=== PATIENT | female | born 1955 | race Caucasian/White ===

== ENCOUNTER → 2017-01-05 | Outpatient (CLI) | payer BC ==
--- NOTE | 2017-01-05 17:31 | CTL ---
EXAMINATION TYPE: CT Low Dose Lung DATE OF EXAM ORDERED: 01/05/2017 7:33 AM HISTORY: . Lung cancer screening CT DLP: 80.[address] CTDI: 2.2 mGy Automated exposure control for dose reduction was used. SCREENING VISIT: Subsequent study COMPARISON: 05/16/2016 TECHNIQUE: Low dose computed tomography scan was performed through the chest at 1 mm thick sections a nd reconstructed images in the coronal plane at [address] DIAGNOSTIC QUALITY: Satisfactory FINDINGS: LUNG NODULES: None. Left: a nodule with a size of 4 x 6 mm. Nodule Size in Millimeters 6 mm mm was visualized with Nodul e Type: Solid that is Nodule state: Solid in nature on image # CT Image slide number 95. Left: a nodule with a size of 0.4 x 0.4 cm.. Nodule Size in Millimeters for mm was visualized with N odule Type: Solid that is Nodule state: Solid in nature on image # CT Image slide number 130. Left: a nodule with a size of 0.5 x 0.4 cm. Nodule Size in Millimeters 5 mm was visualized with Nodu le Type: Solid that is Nodule state: Solid in nature on image # CT Image slide number 130. LUNGS: COPD: Severity: None Fibrosis: Severity: None Lymph nodes: None Other findings: Ascending thoracic aorta at the level the main pulmonary artery is 3.4 cm. The main p ulmonary bifurcation is 2.3 cm. RIGHT PLEURAL SPACE: Effusion: None Calcification: None Thickening: None Pneumothorax: None LEFT PLEURAL SPACE: Effusion: None Calcification: None Thickening: None Pneumothorax: None HEART: Heart Size: Normal Coronary calcification: None observed Pericardial effusion: None OTHER FINDINGS: Upper abdomen: Unremarkable Bony thorax: Normal Supraclavicular region: No suspicious adenopathy. Other: None IMPRESSION: 1. Stable small nodules within the left upper and midlung FOLLOW UP CT CHEST RECOMMENDATION: Follow-up chest CT [address] LUNG RAD: Lung-Rad 3 Probably Benign
== END ==
LOC: RADCTMAIN 07:09
PROVIDERS: ATTEND Family Medicine
DX: R91.8 Other nonspecific abnormal finding of lung field (principal); Z87.891 Personal history of nicotine dependence

== ENCOUNTER → 2017-07-20 | Outpatient (CLI) | payer BC ==
--- NOTE | 2017-07-20 08:29 | CTL ---
EXAMINATION TYPE: CT Low Dose Lung DATE OF EXAM ORDERED: 07/20/2017 HISTORY: Personal history of tobacco abuse. Lung cancer screening CT DLP: 68.[address] CTDI: 2.20 mGy Automated exposure control for dose reduction was used. SCREENING VISIT: 3 COMPARISON: 05/16/2016 and 01/05/2017 TECHNIQUE: Low dose computed tomography scan was performed through the chest at 1 mm thick sections a nd reconstructed images in the coronal plane at [address] DIAGNOSTIC QUALITY: Satisfactory FINDINGS: LUNG NODULES: Left: a nodule with a size of 4 x 6 mm is again seen and unchanged from the prior. Nodule Type: Solid that is Nodule state: Unchanged in nature on image # CT Image slide number 84. Left: a nodule with a size of 4 x 4 millimeter is again seen and unchanged from the prior. Nodule Typ e: Solid that is Nodule state: Unchanged in nature on image # CT Image slide number 120. The previous ly seen adjacent nodule represents a pulmonary vessel. Right: A subpleural solid nodule measuring 4 x 3 mm is seen. This is present on image 69. This is new from the prior exam. LUNGS: COPD: Severity: None Fibrosis: Severity: None Lymph nodes: Non- Other findings: No evidence of pulmonary arterial hypertension or thoracic aortic aneurysm. Minimal s ubsegmental bibasilar atelectasis is present. RIGHT PLEURAL SPACE: Effusion: None Calcification: None Thickening: None Pneumothorax: None LEFT PLEURAL SPACE: Effusion: None Calcification: None Thickening: None Pneumothorax: None HEART: Heart Size: Normal Coronary calcification: Pericardial effusion: None OTHER FINDINGS: Upper abdomen: Unenhanced visualized images of the upper abdomen are unremarkable. Bony thorax: Moderate degenerative changes of the thoracic spine. Supraclavicular region: No suspicious adenopathy IMPRESSION: Stable solid subcentimeter left pulmonary nodules and single solid subcentimeter new righ t pulmonary nodule. FOLLOW UP CT CHEST RECOMMENDATION: Follow-up chest CT is again recommended in 6 months as there is a new right pulmonary nodule. CT LUNG RAD: Lung RADS 3 probably benign
== END | disposition home or self-care (01) ==
LOC: RADCTMAIN 06:36
PROVIDERS: ATTEND Family Medicine
DX: Z12.2 Encounter for screening for malignant neoplasm of respiratory organs (principal); R91.8 Other nonspecific abnormal finding of lung field; Z87.891 Personal history of nicotine dependence

== ENCOUNTER → 2017-08-07 | Outpatient (CLI) | payer BC ==
--- NOTE | 2017-08-07 19:42 | PN ---
PROGRESS NOTE Leanne is doing well. She is coming in for a 2 year follow up regarding her obstructive sleep apnea. She was diagnosed having ТАТЬЯНА and she is currently on CPAP pressure of 8 cm. Baseline AHI was 72. She has gained about 8 pounds since her original diagnosis. She is doing well. Her treatment was successful. She is using an AirFit N10 nose mask; however she is still leaking around 33 beats per minute around the mask. Despite the leak, she is still benefitting from the treatment. AHI is down to 3.5, while on treatment. Her compliancy has shown average CPAP use around 7.9 hours per night. She is alert and awake during the day. She has not falling asleep during the daily activities. No other new onset comorbidities or complications while on treatment. BP 127/68, pulse is 70, respirations 16, temp 98.5 saturation 96% on room air. Weight is 168. BMI 30.7. Height is 5 feet 2 inches. GENERAL APPEARANCE: Calm, comfortable. HEENT: Mallampati class IV. No goiter or neck masses. LUNGS: Clear to auscultation. HEART: Sounds regular rhythm. Normal S1, S2. No S3, S4. No murmurs. ABDOMEN: Soft, nontender. EXTREMITIES: No edema. No cyanosis or clubbing. IMPRESSION: 1. Symptomatic obstructive sleep apnea, AHI of 72 at baseline, currently on CPAP pressure of 8. 2. Increased leaks around the nose mask, AirFit N10. 3. Successful treatment with an AHI while on treatment is down to 3.5. 4. Adequate compliance. PLAN: 1. Switch this patient to an AirFit P10 nasal pillows. 2. I sized the patient a small size nasal pillows today and prescription will be sent to [facility]. 3. Encourage weight loss. 4. Maintain same CPAP pressure. 5. We will continue to follow and we will see her back in couple of years or earlier if needed. For now, treatment is successful. MMODL / IJN: [id number] /
== END ==
LOC: SLEEP 15:28
PROVIDERS: ATTEND Internal Medicine Critical Care Medicine
DX: G47.33 Obstructive sleep apnea (adult) (pediatric) (principal)

== ENCOUNTER → 2018-02-08 | Outpatient (CLI) | payer BC ==
--- NOTE | 2018-02-08 08:50 | CTL ---
EXAMINATION TYPE: CT Low Dose Lung DATE OF EXAM ORDERED: 02/08/2018 HISTORY: 62-year-old female Personal history of tobacco use. Lung cancer screening CT DLP: 114.[address] CTDI: 3.6 mGy Automated exposure control for dose reduction was used. SCREENING VISIT: Six-month follow-up COMPARISON: 07/20/2017 and 01/05/2017 TECHNIQUE: Low dose computed tomography scan was performed through the chest at 1 mm thick sections a nd reconstructed images in the coronal and sagittal plane at [address] DIAGNOSTIC QUALITY: Satisfactory FINDINGS: The heart is normal size without pericardial effusion. Aorta normal caliber with a conventional branching anatomy. Scattered mild assess for recurrence calc ifications. No thoracic lymphadenopathy by CT size criteria. -A tiny 3 mm pulmonary nodule peripheral right upper lobe axial image 52 is unchanged for one year in retrospect. -A 3 mm subpleural pulmonary nodule peripheral right upper lobe axial image 68 is unchanged for one y ear in retrospect. -A 3 mm right middle lobe pulmonary nodule axial image 147 is unchanged for 6 months. -Some linear scarring peripheral right base is unchanged. -A 5 mm subpleural pulmonary nodule peripheral left upper lobe axial image 92 is unchanged for one ye ar. -A 4 mm pulmonary nodule left mid lung along the major fissure is unchanged for one year axial image 122. -No consolidation or pleural effusion. [place]andy areas of atelectasis are present. Visualized upper abdomen shows no gross abnormality. Bones: Endplate spondylosis mid to lower thoracic spine. No osseous destructive process. IMPRESSION: 1. LungRADS 2 - benign; bilateral pulmonary nodules measuring up to 5 mm are unchanged for at least 6 months. RECOMMENDATION: 1. Continue with annual low-dose CT lung cancer screening in 1 year. 2. Smoking cessation. FOLLOW UP CT CHEST RECOMMENDATION: [address] LUNG RAD: Lung-Rad 2 Benign Appearance or Behavior
== END | disposition home or self-care (01) ==
LOC: RADCTMAIN 06:37
PROVIDERS: ATTEND Family Medicine
DX: Z12.2 Encounter for screening for malignant neoplasm of respiratory organs (principal); Z87.891 Personal history of nicotine dependence; R91.8 Other nonspecific abnormal finding of lung field

== ENCOUNTER → 2018-06-17 | Outpatient (CLI) | payer BC ==
--- NOTE | 2018-06-17 22:26 | CT ---
EXAMINATION TYPE: CT abdomen pelvis wo con DATE OF EXAM: 06/17/2018 HISTORY: Abdominal bloating x6 months per patient. Pain (R.9) per order. CT DLP: 738 mGycm. Automated Exposure Control for Dose Reduction was Utilized. TECHNIQUE: CT scan of the abdomen and pelvis is performed without oral or IV contrast. COMPARISON: Complete abdominal ultrasound April 28, 2016 FINDINGS: Within the limitations of a non-contrast study, the following observations are made. LUNG BASES: There is bibasilar lateral linear scarring. LIVER/GB: Liver is heterogeneously hypodense relative to spleen consistent with diffuse fatty infiltr ation. Somewhat contracted gallbladder is noted. PANCREAS: No significant abnormality is seen. SPLEEN: No significant abnormality is seen. ADRENALS: No significant abnormality is seen. KIDNEYS: Corresponding with ultrasound there is a 1.6 cm simple-appearing cyst laterally upper and mi d pole level left kidney. There is exophytic 1.2 cm low dense lesion favoring simple cyst axial image 36. There are subcentimeter exophytic lesion anteriorly upper pole of the right kidney too small to furth er characterize axial image 18. There is 2 mm nonobstructing calculus upper pole of the right kidney coronal image 60. BOWEL: No suspicious small or large bowel dilatation is present. Normal-appearing appendix is seen fr om cecum. There are a few scattered colonic diverticula. There is no CT evidence for acute diverticul itis. GENITAL ORGANS: Anteverted uterus is seen. Uterine fundus there is a 1.4 cm low dense lesion felt to reflect subserosal fibroid sagittal image 37. This can be confirmed with pelvic ultrasound desired. Both ovaries are seen on axial image 59 without suspicious enlargement. LYMPH NODES: No greater than 1cm abdominal or pelvic lymph nodes are appreciated. OSSEOUS STRUCTURES: Mild facet arthropathy lower lumbar levels is present. OTHER: Mild to moderate calcified plaque of the aorta extends into branch vessels. IMPRESSION: 1. No bowel obstruction. No ascites is seen. 2. A 2 mm nonobstructing right renal calculus. No hydronephrosis or obstructing renal calculi. 3. Suspected 1.4 cm subserosal fibroid. This can be confirmed with pelvic ultrasound if desired.
== END | disposition home or self-care (01) ==
LOC: RADCTMAIN 17:05
PROVIDERS: ATTEND Family Medicine
DX: N20.0 Calculus of kidney (principal)
CPT/HCPCS: 74176

== ENCOUNTER → 2018-12-10 | Outpatient (CLI) | payer BC ==
--- NOTE | 2018-12-10 17:16 | PN ---
PROGRESS NOTE Leanne is coming in for a follow up regarding obstructive sleep apnea. She was diagnosed having severe ТАТЬЯНА more than 2 years ago. Her AHI back then was 72 and the patient was offered CPAP therapy and she is still using CPAP treatment which is set at a pressure of 8 cm of water. She is using an AirFit N10 nose mask. She continues to be very successfully treated. Her CPAP compliance data show that the patient has been utilizing her CPAP around 8 hours per night. Her AHI is down to 3.6 while on treatment and leak factor is 28 L/minute. No hypersomnia or sleepiness during the day. No fatigue or tiredness during the day. Her [place] score currently is down to 2. Her weight has been up by around 7 pounds since her last evaluation approximately 2 years ago. REVIEW OF SYSTEMS: 12-point review of system was done. Positive findings are mentioned above in the history of present illness. PHYSICAL EXAMINATION: BP is 182/76, pulse 74, respirations 16, temperature 98.1. Saturation 98% on room air. Height is 5 feet, 2 inches, weight is 175 and BMI 32. GENERAL APPEARANCE: Calm, comfortable. Head is atraumatic, normocephalic. NECK: Supple. There is no JVD. No goiter or neck masses. Mallampati class IV. LUNGS: Clear to auscultation. HEART: Sounds regular rate and rhythm. Normal S1, S2. No murmurs. ABDOMEN: Soft, nontender. No organomegaly. EXTREMITIES: No edema. No cyanosis or clubbing. NEUROLOGIC: Alert and oriented x3. There is no focal neurological deficits. PSYCHIATRIC: Negative for anxiety or depression. IMPRESSION: 1. Severe obstructive sleep apnea AHI of 72, currently on CPAP pressure of 8. 2. Hypersomnia, improved. [place] score is down to 2. 3. Obesity BMI of 32, the patient has gained about 7 pounds since her last evaluation. PLAN: 1. Continue CPAP therapy at same level of pressure. 2. Renew the patient AirFit N10 small size nose mask. 3. No need for any pressure adjustments. 4. Continue CPAP therapy. 5. Follow up with primary care regarding her hypertension as the patient's blood pressure was noted to be elevated on today's evaluation. 6. See me back in a few year's time in follow up, earlier if needed. MMODL / IJN: [id number] /
== END ==
LOC: SLEEP 15:37
PROVIDERS: ATTEND Internal Medicine Critical Care Medicine
DX: G47.33 Obstructive sleep apnea (adult) (pediatric) (principal); E66.9 Obesity, unspecified; Z68.32 Body mass index [BMI] 32.0-32.9, adult; Z99.89 Dependence on other enabling machines and devices

== ENCOUNTER → 2021-03-15 | Outpatient (CLI) | payer BC ==
--- NOTE | 2021-03-15 07:28 | US ---
EXAMINATION TYPE: US abdomen complete DATE OF EXAM: 03/15/2021 COMPARISON: CT, US CLINICAL HISTORY: R74.01 elevated liver enzymes. Elevated LFT's EXAM MEASUREMENTS: Liver Length: 19.3 cm Gallbladder Wall: 0.2 cm CBD: 0.4 cm Spleen: 7.8 cm Right Kidney: 10.6 x 4.8 x 5.1 cm Left Kidney: 11.1 x 4.5 x 5.3 cm Pancreas: wnl, tail obscured by overlying bowel gas Liver: Enlarged, heterogeneous Gallbladder: wnl Evidence for sonographic Dejesus's sign: No CBD: wnl Spleen: wnl Right Kidney: No evidence of hydro, echogenic focus mid= 0.5 cm Left Kidney: Cyst upper pole= 2.4 x 2.3 x 2.3 cm, No evidence of hydro Upper IVC: wnl Abd Aorta: wnl IMPRESSION: 1. Pattern of liver is nonspecific could be associated with hepatitis or hepatic steatosis. 2. left renal cyst. 3. Nonobstructing 5 mm right renal stone.
== END | disposition home or self-care (01) ==
LOC: RADUSWWP 06:55
PROVIDERS: ATTEND Family Medicine
DX: N20.0 Calculus of kidney (principal); N28.1 Cyst of kidney, acquired
CPT/HCPCS: 76700

== ENCOUNTER → 2022-05-30 | Outpatient (CLI) | payer MEDICARE, OTHER ==
--- NOTE | 2022-05-30 16:10 | P.PN ---
Subjective Progress Note Date: 05/30/22 This is a 67-year-old female patient with obstructive sleep apnea in her left ventilation with me was in December 2018. The patient is coming in for a routine check and follow-up. She is noticing admitted with an AHI of 72 and the patient has been maintained on CPAP pressure of 10 cm of water. Over the past 3 years, the patient was extubated successfully the treatment and the patient is not having any major issues with her machine. Admission is functional and the patient continues to use the CPAP pressure of 10 cm of water. No recent white count weight loss. Her weight is stable. No tiredness. No fatigue. No daytime hypersomnia. Based on the compliance subjective is on a CPAP machine, the patient has been utilizing her machine every night without interruption. The patient achieving more than 4 hours a CPAP use 100% of the time and she's been averaging about 8.8 hours of CPAP use per night. Currently is off of the extremity distal metatarsal AHI of 3.5 while on treatment. No new onset medical problems and comorbidities. She is in need for refills and supplies or machine which is essentially functional at this point in time. Objective - Exam BP is 142/92, pulse is 78, respirations 16, temperature 97.4, weight is 138 poun ds, body mass index is 32.7, oxygenation 98% on room air, [place] score is at 3 The patient appeared well nourished and normally developed. Vital signs as documented. Head exam is unremarkable. No scleral icterus or corneal arcus noted. Neck is without jugular venous distension, thyromegaly, or carotid bruits. Carotid upstrokes are brisk bilaterally. Lungs are clear to auscultation and percussion. Cardiac exam reveals the PMI to be normally sized and situated. Rhythm is regular. First and second heart sounds normal. No murmurs, rubs or gallops. Abdominal exam reveals normal bowel sounds, no masses, no organomegaly and no aortic enlargement. Extremities are nonedematous and both femoral and pedal pulses are normal.Examination of the skin revealed no evidence of significant rashes, suspicious appearing nevi or other concerning lesions.Neurologically, the patient is awake and alert and the patient does not have any focal neurological deficit. Cranial nerves are essentially intact. Assessment and Plan Plan: Obstructive sleep apnea, severe, with an AHI of 72, and the patient was successfully treated with a CPAP pressure of 10 cm of water. She has a functional machine and they compliance data shows adequate use of the machine. Chronic hypersomnia, recovered Hyperlipidemia Hypertension Acid reflux Plan Continue using the same CPAP unit, where she is functional Refill her supplies The patient is using the airfit N10 nasal mask for size and this going fairly refill Weight is stable Hygiene measures are good and she is maintaining a regular sleep schedule We'll continue to follow. No need for updating his CPAP machine for now. Despite the machine exceeding his life expectancy, it is a functional machine and the patient having any issues utilizing the same machine for now. We'll continue to follow and she'll contact me should there be any change in her condition or her machine status
== END ==
LOC: SLEEP 12:59
PROVIDERS: ATTEND Internal Medicine Critical Care Medicine
DX: G47.33 Obstructive sleep apnea (adult) (pediatric) (principal); E78.5 Hyperlipidemia, unspecified; I10 Essential (primary) hypertension; K21.9 Gastro-esophageal reflux disease without esophagitis; F17.200 Nicotine dependence, unspecified, uncomplicated
CPT/HCPCS: 99211

== ENCOUNTER → 2022-07-24 | Outpatient (CLI) | payer MEDICARE, OTHER ==
--- NOTE | 2022-07-25 11:17 | CTL ---
EXAMINATION TYPE: CT Low Dose Lung DATE OF EXAM ORDERED: 07/24/2022 HISTORY: Former smoker. Lung cancer screening CT DLP: 87.[address] CTDI: 2.40 mGy Automated exposure control for dose reduction was used. SCREENING VISIT: Subsequent COMPARISON: 02/08/2018 TECHNIQUE: Low dose computed tomography scan was performed through the chest at 1 mm thick sections a nd reconstructed images in the coronal plane at [address] DIAGNOSTIC QUALITY: Satisfactory FINDINGS: LUNG NODULES: Present, detailed below: 1. There is a pleural-based 0.7 cm density along the anterolateral left lung margin. Series 4 image 1 12. This may been present previously with minimal enlargement. Previous measurement 0.5 cm. 2. There is a 0.5 cm density within the posterior lateral left upper lung field. Series 4 image 122. This was present previously measuring 0.4 cm. 3. A previous 0.3 cm right mid lung anterior nodule was not appreciated on the current exam. LUNGS: COPD: Severity: None Fibrosis: Severity: None Lymph nodes: None Other findings: None RIGHT PLEURAL SPACE: Effusion: None Calcification: None Thickening: None Pneumothorax: None LEFT PLEURAL SPACE: Effusion: None Calcification: None Thickening: None Pneumothorax: None HEART: Heart Size: Normal Coronary calcification: Minimal Pericardial effusion: None OTHER FINDINGS: Upper abdomen: Normal Bony thorax: Normal Supraclavicular region: Normal Other: Ascending thoracic aorta at the level the main pulmonary artery measures 3.6 cm. The main pul monary artery at the bifurcation measures 2.5 cm. IMPRESSION: 1. Minimal enlargement of a couple of left-sided lung nodules and this may be within measurement erro r. Short-term follow-up CT chest in 6 months is recommended to reevaluate. FOLLOW UP CT CHEST RECOMMENDATION: Follow-up CT chest [address] LUNG RAD: Lung-Rad 3 Probably Benign
== END | disposition home or self-care (01) ==
LOC: RADCTMAIN 12:30
PROVIDERS: ATTEND Family Medicine
DX: Z12.2 Encounter for screening for malignant neoplasm of respiratory organs (principal); R91.8 Other nonspecific abnormal finding of lung field; Z87.891 Personal history of nicotine dependence
CPT/HCPCS: 71271